=== PATIENT | female | born 1975 | race Caucasian/White ===

== ENCOUNTER 2016-09-11 13:02 | Emergency (ER) | payer OTHER ==
[~2016-09-11] VITALS: Ht 157.5 cm; Wt 102.2 kg
[~2016-09-11 13:02] MED LIST: CITALOPRAM HBR20 MG PO; ENDOCET 5-3251 EACH PO; LOESTRIN1 EACH PO; METOPROLOL SUCC50 MG PO; PROVERA,CYCRIN10 MG PO; VICODIN 5-3001 EACH PO; ZOFRAN4 MG PO
[2016-09-11 14:14] LABS: ADD MIUA? NO; BILIRUBIN NEGATIVE; BLOOD NEGATIVE; COLOR STRAW ((YELLOW)); GLUCOSE (STRIP) NEGATIVE; KETONES NEGATIVE; LEUKOCYTES NEGATIVE; NITRITE NEGATIVE; PROTEIN (STRIP) NEGATIVE; SPECIFIC GRAVITY 1.009 (1.000-1.030); UCUL ADDED? NO; UROBILINOGEN 0.2 MG/DL (0.2-1.0)
[2016-09-11 14:32] LABS: HEMATOCRIT 44.6 % (36.0-46.0); MCH 27.6 PG (29.0-34.0); MCHC 33.4 G/DL (30.0-36.0); MCV 82.7 FL (83-99); MEAN PLAT.VOLUME 8.7 uM^3 (9.5-12.4); PLATELET COUNT 306 K/uL (156-360); RBC DIS.WIDTH-CV 13.2 % (11.8-14.6); RBC DIS.WIDTH-SD 39.6 % (39-53); RED BLOOD COUNT 5.39 M/uL (3.80-5.20); WHITE BLOOD COUNT 10.3 K/uL (4.1-10.2)
[2016-09-11 14:39] LABS: CHLORIDE 106 mEq/L (99-109); POTASSIUM 3.9 mEq/L (3.7-5.4); SODIUM 140 mEq/L (136-147)
[2016-09-11 14:41] LABS: GLUCOSE 98 mg/dL (70-99)
[2016-09-11 14:42] LABS: ANION GAP 8 MEQ/L (2-14)
[2016-09-11 14:43] LABS: TOTAL BILIRUBIN 0.4 mg/dL (0.0-1.0)
[2016-09-11 14:44] LABS: ALKALINE PHOSPHATASE 68 IU/L (3-129)
[2016-09-11 14:45] LABS: GFR ESTIMATE (CALCULATED) > 59 mL/min/
[2016-09-11 14:46] LABS: UREA NITROGEN (BUN) 9 mg/dL (9-23)
[2016-09-11 14:55] LABS: QUANTITATIVE HCG < 4.0 MIU/ML
[2016-09-11] MEDS ORDERED: PERCOCET 5/31 TABLET PO (18:37)
[2016-09-11] MEDS ORDERED: ZOFRAN ODT4 MG PO (18:37)
[2016-09-11 19:15] VITALS: BP 177/88
== END 2016-09-11 19:20 | disposition home or self-care (01) ==
LOC: EME 13:02
DX: R10.31 Right lower quadrant pain (principal); Z90.49 Acquired absence of other specified parts of digestive tract; I10 Essential (primary) hypertension; F17.200 Nicotine dependence, unspecified, uncomplicated; Z90.710 Acquired absence of both cervix and uterus
CPT/HCPCS: 74177; 80053; 81003; 84702; 85027; 99281; 99285